=== PATIENT | male | born 1985 | race Caucasian/White ===

== ENCOUNTER 2017-07-26 22:14 | Emergency (ER) | payer OTHER, MEDICAID, SELFPAY | END 2017-07-27 12:26 | disposition home or self-care (01) | PROVIDERS: Emergency Provider Emergency Medicine; Family Provider Family Medicine; PCP Family Medicine; Visit Provider Emergency Medicine | DX: F10.10 Alcohol abuse, uncomplicated (principal) | CPT/HCPCS: 36415; 74177; 76700; 80053; 80305; 80320; 80329; 82550; 82553; 83690; 85025; 96361; 96374; 96375; 99058; 99285; C9113; G0480; J2060; Q9967 ==

== ENCOUNTER 2017-07-30 19:01 | Emergency (ER) | payer OTHER, MEDICAID, SELFPAY | END 2017-07-31 05:12 | disposition home or self-care (01) | PROVIDERS: Family Provider Family Medicine; PCP Family Medicine | DX: F10.929 Alcohol use, unspecified with intoxication, unspecified (principal) | CPT/HCPCS: 36415; 80048; 80305; 80320; 82075; 85025; 99058; 99284 ==

== ENCOUNTER 2017-08-24 22:45 | Emergency (ER) | payer OTHER, MEDICAID, SELFPAY ==
[2017-08-24 22:53] VITALS: BP 143/98; PULSE 116; RESP 16; TEMP 37; O2SAT 98; BMI 33.9
[2017-08-24 22:56] VITALS: BP 143/98; PULSE 117; RESP 28; O2SAT 95
[2017-08-24 23:48] LABS: Add Manual Diff / Slide Review NO; Basophils Percent Auto 1.2 % (0-2); Eosinophils Percent Auto 0.7 % (2-4); Hematocrit 49.4 % (41-53); Lymphocytes Percent Auto 30.1 % (25-40); Mean Corpuscular HGB Conc 34.3 % (30-36); Mean Corpuscular Hemoglobin 32.2 PG (26-34); Mean Corpuscular Volume 93.8 fL (80-100); Monocytes Percent Auto 8.6 % (3-14); Neutrophils Absolute Auto 3700 /uL (3000-5900); Neutrophils Percent Auto 59.4 % (50-75); Platelet Count 129 X10^3/uL (150-400); Red Blood Cell Count 5.27 X10^6/uL (4.5-5.9); Red Cell Distribution Width 17.6 % (11.6-14.8); White Blood Cell Count 6.2 X10^3/uL (4.5-11.0)
[2017-08-25] VITALS (9 sets, daily range): BP systolic 106–140; BP diastolic 58–86; PULSE 72–104; RESP 12–23; O2SAT 94–98
[2017-08-25] MEDS: SODIUM CHLORIDE 0.9% 1,000 ML 1000 ML IV (00:14)
[2017-08-25 00:29] LABS: BUN Creatinine Ratio 11.4 (6-22); Calcium 8.6 mg/dL (8.4-10.2); Estimated Glomerular Filt Rate > 60.0 mL/min (>60); Glucose 105 mg/dL (70-100); HEMOLYSIS < 15 (0-50); Potassium 3.7 mmol/L (3.4-5.1); Sodium 143 mmol/L (137-145)
--- NOTE | 2017-08-25 00:32 | PC.NURSE ---
Upon arrival, patient attempted to light a cigarette while laying on the gurney. Was advised this was against hospital policy and cigarette was taken away. Half an hour later, patient asked to walk to the bathroom to have a bowel movement. He ambulated with stand by assist and sat down on the toilet. He was found to be smoking cigarettes in the bathroom. He was again advised by the charge nurse that smoking is prohibited in the hospital. His cigarettes were taken. After this, he was found to be smoking a cigarette butt in his room. Several lighters were removed from his pockets along with his cigarettes and placed in a locked cabinet, labeled.
[2017-08-25 00:40] LABS: Ethanol (ETOH) 457 mg/dL
--- NOTE | 2017-08-25 01:04 | PC.NURSE ---
Pt has clear speech. Responds to stimulation. Obeys simple commands. Ambulates with slightly unsteady gait.
--- NOTE | 2017-08-25 06:58 | ED_ITS ---
HPI - Alcohol General Chief Complaint: Toxicology Problem Stated Complaint: ETOH Intoxication Time Seen by Provider: 08/24/17 22:47 History of Present Illness HPI narrative: HPI 31 y/o male with a history of EtOH and cough syrup abuse presents by EMS from a motel. Patient states that he is concerned that is in withdraw. Patient reports that he was drinking today. Patient denies further drug use. Patient denies trauma or illness. M/S/F/SocHx notable for: [please see HPI]; remainder reviewed with patient and in chart. ROS: Negative constitutional, eye, cardiovascular, pulmonary, GI, , MSK, skin , neurologic, psychiatric, endocrine unless noted in the HPI. Exam Gen: [Pleasant, non-toxic appearing, resting comfortably.] Mild slurring of speech. HEENT: [NC, AT, PEERL, EOMI.] Resp: [Clear to auscultation bilaterally, normal work of breathing, no accessory muscle usage.] Card: [Regular rate and rhythm with no murmurs, rubs, or gallops, extremities warm and well perfused.] GI: [Non-tender to palpation throughout all quadrants, no focal tenderness at McBurney's point, negative Reid's sign, non-distended, no rebound or guarding. ] : [No suprapubic tenderness to palpation.] MSK: [No visible deformities, strength and tone without visually appreciable deficit.] Skin: [Normal color with no visible lesions.] Neuro: [AO x 3, no facial asymmetry, vision and hearing WNL.] Psych: [Mood and affect appropriate.] Labs / Imaging: WBC 6.2, Hb 17.0, sodium 143, potassium 3.7, EtOH 457 MDM Previous chart, nursing note, labs, imaging, and vitals reviewed. A: 31 y/o male with a history of EtOH and cough syrup abuse presents by EMS from a motel. Patient states that he is concerned that is in withdraw. DDx: EtOH withdraw, EtOH intoxication, polysubstance intoxication, dehydration, occult trauma, PE, infection. Evaluation: history, exam, repeat evaluation are without evidence of acute infectious process. Clinically observed toxidrome is consistent with with the patient's elevated alcohol level, no clear evidence of clinically significant polypharmacy. Patient given IV hydration with correction tachycardia. Given the absence of further identifiable risk factors, and alternate diagnosis ( dehydration), and absence of shortness of breath no further evaluation with respect to PE is presently indicated. No evidence of trauma on history or exam. With rest and metabolization patient inhibitory with a narrow based nonantalgic gait. Patient with clearing of sensorium. Patient care transfer to the daytime provider pending sobriety and repeat evaluation. Impression: EtOH intoxication, dehydration (please reference below for remainder of encounter information) Related Data Home Medications Medication Instructions Recorded Confirmed esomeprazole magnesium [Nexium] 40 mg PO QDAY #0 04/27/17 paliperidone [Invega] 1.5 mg PO QDAY #0 04/27/17 Previous Rx's Medication Instructions Recorded lorazepam [Ativan] 1 mg PO SEE INSTRUCTIONS #18 tab 05/27/17 lorazepam [Ativan] 1 mg PO SEE INSTRUCTIONS #19 tab 07/16/17 ondansetron [Zofran ODT] 4 mg SUBLINGUAL Q6HP PRN #20 odt 07/16/17 lorazepam [Ativan] 1 mg PO SEE INSTRUCTIONS #19 tab 07/27/17 chlordiazepoxide HCl 25 mg PO SEE INSTRUCTIONS #9 cap 07/31/17 Allergies Allergy/AdvReac Type Severity Reaction Status Date / Time amoxicillin [AMOXICILLIN] Allergy Unknown Unverified 07/19/17 11:55 Exam Initial Vital Signs Initial Vital Signs: Vital Signs Temperature 98.6 F 08/24/17 22:53 Pulse Rate 116 H 08/24/17 22:53 Respiratory Rate 16 08/24/17 22:53 Blood Pressure 143/98 H 08/24/17 22:53 Pulse Oximetry 98 08/24/17 22:53 Course Orders Ordered: ED Orders 08/24/17 23:02 EKG-12 Lead Stat 08/24/17 23:42 Basic Metabolic Panel Stat Complete Blood Count AUTO DIFF Stat Ethanol (ETOH) Stat Discontinued Medications Sodium Chloride (Normal Saline 0.9%) 500 mls @ 1,000 mls/hr IV BOLUS ONE Stop: 08/25/17 00:02 Last Admin: 08/25/17 00:12 Dose: Sodium Chloride (Normal Saline 0.9%) 1,000 mls @ 1,000 mls/hr IV BOLUS ONE Stop: 08/25/17 01:11 Last Infusion: 08/25/17 01:40 Dose: 1,000 mls/hr Admin: 08/25/17 00:14 Dose: 1,000 mls/hr Vital Signs - 8 hr 08/25/17 01:01 08/25/17 03:37 08/25/17 04:29 Pulse Rate 73 94 H 72 Respiratory Rate 22 20 16 Blood Pressure 140/80 H Blood Pressure [Left Arm] 114/81 H 122/86 H Pulse Oximetry 96 97 98 08/25/17 05:54 Pulse Rate 91 H Respiratory Rate 23 Blood Pressure Blood Pressure [Left Arm] 107/58 L Pulse Oximetry 95 MDM - Alcohol Lab Data Result diagrams: 08/24/17 23:42 08/24/17 23:42 Labs: Lab Results 08/24/17 08/24/17 Range/Units 23:42 23:42 WBC 6.2 (4.5-11.0) X10^3/uL RBC 5.27 (4.5-5.9) X10^6/uL Hgb 17.0 (13.5-17.5) g/dL Hct 49.4 (41-53) % MCV 93.8 (80-100) fL MCH 32.2 (26-34) PG MCHC 34.3 (30-36) % RDW 17.6 H (11.6-14.8) % Plt Count 129 L (150-400) X10^3/uL Neut % (Auto) 59.4 (50-75) % Lymph % (Auto) 30.1 (25-40) % [place] % (Auto) 8.6 (3-14) % Eos % (Auto) 0.7 L (2-4) % Baso % (Auto) 1.2 (0-2) % Neut # (Auto) 3700 (2905-5574) /uL Sodium 143 (137-145) mmol/L Potassium 3.7 (3.4-5.1) mmol/L Chloride 102.0 (98-107) mmol/L Carbon Dioxide 23.0 (22-32) mmol/L BUN 8.0 L (9-20) mg/dL Creatinine 0.70 (0.66-1.25) mg/dL Estimated GFR > 60.0 (>60) mL/min BUN/Creatinine Ratio 11.4 (6-22) Glucose 105 H (70-100) mg/dL Calcium 8.6 (8.4-10.2) mg/dL Ethyl Alcohol 457 H* mg/dL Discharge Plan Departure Interventions: ED Discharge Assessment Last Done: 08/25/17 04:29 Prescriptions: No Action esomeprazole magnesium [Nexium] 40 MG capsule,delayed release(DR/EC) 40 mg PO QDAY Qty: 0 RF: 0 paliperidone [Invega] 1.5 MG tablet extended release 24hr 1.5 mg PO QDAY Qty: 0 RF: 0 lorazepam [Ativan] 1 MG tablet 1 mg PO SEE INSTRUCTIONS Qty: 18 RF: 0 lorazepam [Ativan] 1 MG tablet 1 mg PO SEE INSTRUCTIONS Qty: 19 RF: 0 ondansetron [Zofran ODT] 4 MG tablet,disintegrating 4 mg Sublingual Q6HP PRNQty: 20 RF: 0 lorazepam [Ativan] 1 MG tablet 1 mg PO SEE INSTRUCTIONS Qty: 19 RF: 0 chlordiazepoxide HCl 25 MG capsule 25 mg PO SEE INSTRUCTIONS Qty: 9 RF: 0
--- NOTE | 2017-08-25 07:23 | PC.NURSE ---
Pt repositioned. Responds to voice and stimulation but falls back to sleep promptly.
[2017-08-25 08:42] LABS: Ethanol (ETOH) 263 mg/dL
[2017-08-25] MEDS: ONDANSETRON 4 MG/2 ML INJ IV (09:14)
--- NOTE | 2017-08-25 09:27 | PC.NURSE ---
Pt alert, requesting detox. Asking for water and taking po fluids. Given Zofran for nausea. Detox called, Pt talking to detox.
--- NOTE | 2017-08-25 12:02 | PC.NURSE ---
Spoke w/ Didi from detox. Accepted, male bed available. Ok'd cab to stop at hotel room to pick up operator pt's usual medications. / Erin RN aware. Cab being scheduled for [id number]
== END 2017-08-25 12:58 | disposition home or self-care (01) ==
PROVIDERS: Emergency Medicine; Emergency Provider Emergency Medicine; Family Provider Family Medicine; PCP Family Medicine
DX: F10.929 Alcohol use, unspecified with intoxication, unspecified (principal); E86.0 Dehydration
CPT/HCPCS: 36415; 80048; 80320; 82075; 85025; 93005; 96360; 99284; 99285; J2405

== ENCOUNTER 2017-09-06 05:14 | Emergency (ER) | payer OTHER, MEDICAID, SELFPAY ==
[2017-09-06] VITALS (8 sets, daily range): BP systolic 116–139; BP diastolic 52–96; PULSE 72–122; RESP 16–28; TEMP 36.9; O2SAT 93–100
--- NOTE | 2017-09-06 05:28 | ED.ANXIETY ---
HPI - Anxiety General Chief Complaint: Anxiety Stated Complaint: panic attack Time Seen by Provider: 09/06/17 05:19 Source: patient and EMS Mode of arrival: EMS Limitations: no limitations History of Present Illness HPI narrative: 31-year-old male seen in this emergency department in the past for alcohol intoxication here for evaluation of a ???panic attack???. Patient called the EMS because he was having what he described was a panic attack. Patient does admit to drinking alcohol this evening. States his last drink was just prior to EMS arrival to his house. He also admits to smoking methamphetamine approximately 3 o'clock this morning. Denies any other toxic ingestions. Patient states that he is anxious about having to spend a year in nursing home starting on the of next month. Last time I saw him here in the emergency department he went voluntarily to a detox facility. He states that he went there for 3 days and then was discharged. Has not followed up since then. Related Data Home Medications Medication Instructions Recorded Confirmed paliperidone [Invega] 1.5 mg PO QDAY #0 04/27/17 08/25/17 Previous Rx's Medication Instructions Recorded lorazepam [Ativan] 2 mg PO DAILY #9 tab 08/25/17 ondansetron [Zofran ODT] 4 mg PO Q6H PRN #20 tab 08/25/17 Allergies Allergy/AdvReac Type Severity Reaction Status Date / Time amoxicillin [AMOXICILLIN] Allergy Unknown Verified 08/25/17 09:14 Review of Systems Constitutional Denies chills, Denies fever(s), Denies lethargy and Denies weakness ENT Ears, Nose, Mouth, and Throat: Denies dizziness Cardiovascular Denies chest pain, Denies irregular heart rhythm, Denies lightheadedness, Denies palpitations, Denies dyspnea, Denies dyspnea on exertion and Denies orthopnea Respiratory Denies cough, Denies dyspnea, Denies dyspnea on exertion and Denies wheezing Gastrointestinal Gastrointestinal: Denies abdominal pain, Denies change in bowel habits, Denies diarrhea, Denies nausea and Denies vomiting Genitourinary Denies dysuria Musculoskeletal Denies numbness and Reports tingling Comments: Pain in his legs Integumentary/Breasts Denies pruritus, Denies erythema, Denies rash and Denies wounds Neurologic Denies confusion, Denies dizziness, Denies focal weakness, Denies numbness, Reports tingling, Reports paresthesias, Reports tremor(s) and Denies weakness Psychiatric Reports anxiety, Denies confusion, Reports panic attacks, Denies homicidal ideation and Denies suicidal ideation Endocrine Denies palpitations Hematologic/Lymphatic Denies easy bruising Allergic/Immunologic Denies wheezing [facility] Social History Smoking Status: Current every day smoker Exam Initial Vital Signs Initial Vital Signs: Vital Signs Temperature 98.5 F 09/06/17 05:20 Pulse Rate 110 H 09/06/17 05:20 Respiratory Rate 28 H 09/06/17 05:20 Blood Pressure 133/84 H 09/06/17 05:20 Pulse Oximetry 95 09/06/17 05:20 Const General: cooperative, No acute distress, anxious and No combative Nutritional Appearance: average body habitus Orientation: alert and awake HENMT Head: normal to inspection and normocephalic Resp Effort & Inspection: normal respiratory effort, able to speak in complete sentences, no respiratory distress and no use of accessory muscles Auscultation: clear to auscultation bilaterally, no rales, no rhonchi and no wheezes Cardio Rate: tachycardic Rhythm: regular rhythm Heart Sounds: no click, no gallops, no murmurs and no rubs Pulses: normal peripheral pulses GI Inspection: normal to inspection Palpation: soft, No firm, No guarding and No rigid Skin General: no rashes or lesions noted, No jaundice and No petechiae Neuro General: alert and awake Psych Appearance: grossly normal Speech and Movement: slowed movement and slurred speech Mood: dysthymic mood Affect: sad and blunted Attitude: cooperative Course Orders Ordered: ED Orders 09/06/17 05:35 Acetaminophen Stat Complete Blood Count AUTO DIFF Stat Comprehensive Metabolic Panel Stat Ethanol (ETOH) Stat Hepatic (Liver) Panel Stat Lipase Stat Salicylate Stat 09/06/17 06:15 Rapid Drug Screen, Urine Stat Multivitamins (Tab-A-Abigail) 1 tab PO DAILY CHRISSY Discontinued Medications Lorazepam (Ativan) 1 mg PO NOW ONE Stop: 09/06/17 05:22 Last Admin: 09/06/17 05:34 Dose: 1 mg Multivitamins (Tab-A-Abigail) 1 tab PO DAILY CHRISSY Multivitamins (Tab-A-Abigail) 1 tab PO DAILY CHRISSY Last Admin: 09/06/17 05:48 Dose: Nicotine (Nicoderm) 21 mg TOP NOW ONE Stop: 09/06/17 05:22 Last Admin: 09/06/17 05:33 Dose: 21 mg Thiamine HCl (Vitamin B-1) 100 mg PO NOW ONE Stop: 09/06/17 05:27 Last Admin: 09/06/17 05:33 Dose: 100 mg Vital Signs - 8 hr 09/06/17 05:20 09/06/17 06:07 09/06/17 06:26 Temperature 98.5 F Pulse Rate 110 H 122 H Respiratory Rate 28 H 26 H Blood Pressure 133/84 H Blood Pressure [Left Arm] 133/96 H Pulse Oximetry 95 94 99 09/06/17 06:48 Temperature Pulse Rate 114 H Respiratory Rate Blood Pressure Blood Pressure [Left Arm] Pulse Oximetry 93 MDM - Anxiety Lab Data Attestation: I reviewed the patient's lab results. Result diagrams: 09/06/17 05:35 09/06/17 05:35 Lab Results 09/06/17 09/06/17 09/06/17 Range/Units 05:35 05:35 06:15 WBC 5.0 (4.5-11.0) X10^3/uL RBC 4.70 (4.5-5.9) X10^6/uL Hgb 15.2 (13.5-17.5) g/dL Hct 43.6 (41-53) % MCV 92.8 (80-100) fL MCH 32.4 (26-34) PG MCHC 34.9 (30-36) % RDW 16.4 H (11.6-14.8) % Plt Count 144 L (150-400) X10^3/uL Neut % (Auto) 73.8 (50-75) % Lymph % (Auto) 14.4 L (25-40) % [place] % (Auto) 9.1 (3-14) % Eos % (Auto) 0.1 L (2-4) % Baso % (Auto) 2.6 H (0-2) % Neut # (Auto) 3700 (5838-6632) /uL Sodium 140 (137-145) mmol/L Potassium 3.9 (3.4-5.1) mmol/L Chloride 97 L (98-107) mmol/L Carbon Dioxide 18 L (22-32) mmol/L BUN 9 (9-20) mg/dL Creatinine 0.80 (0.66-1.25) mg/dL Estimated GFR > 60.0 (>60) mL/min BUN/Creatinine Ratio 11.3 (6-22) Glucose 131 H (70-100) mg/dL Calcium 8.6 (8.4-10.2) mg/dL Total Bilirubin 0.8 (0.2-1.3) mg/dL Conjugated Bilirubin 0.0 (0.0-0.3) md/dL Unconjugated Bilirubin 0.4 (0.0-1.1) mg/dL AST 110 H (17-59) IU/L ALT 169 H (21-72) IU/L Alkaline Phosphatase 116 (38-126) U/L Total Protein 7.5 (6.3-8.2) g/dL Albumin 4.5 (3.5-5.0) g/dL Globulin 3.0 (1.7-4.1) g/dL Albumin/Globulin Ratio 1.5 (1.0-2.8) Lipase 148 (23-300) U/L Salicylates < 1.0 (<20) mg/dL Urine Opiates Screen Negative (Negative) Ur Oxycodone Screen Negative (Negative) Urine Methadone Screen Negative (Negative) Acetaminophen < 10 L (10-30) ug/dL Ur Barbiturates Screen Negative (Negative) U Tricyclic Antidepress Negative (Negative) Ur Phencyclidine Scrn Negative (Negative) Ur Amphetamines Screen Positive H (Negative) U Methamphetamines Scrn Positive H (Negative) Ur MDMA Scrn (Ecstasy) Negative (Negative) U Benzodiazepines Scrn Positive H (Negative) Urine Cocaine Screen Negative (Negative) U Marijuana (THC) Screen Negative (Negative) Ethyl Alcohol 447 H* mg/dL MDM Narrative Medical decision making narrative: Elevated ETOH level. also positive for meth in UDS and pt admits to smoking meth last night. Pt stable. increased HR but I suspect this is from the ETOH and meth. I do not think he is acute withdraw. Turned over to day provider at shift turnover for re-evaluation. Discharge Plan Departure Prescriptions: No Action paliperidone [Invega] 1.5 MG tablet extended release 24hr 1.5 mg PO QDAY Qty: 0 RF: 0 ondansetron [Zofran ODT] 4 mg tablet,disintegrating 4 mg PO Q6H PRN (Reason: nausea) Qty: 20 RF: 0 lorazepam [Ativan] 2 mg tablet 2 mg PO DAILY Qty: 9 RF: 0
[2017-09-06] MEDS: THIAMINE 100 MG TABLET PO (05:33)
[2017-09-06] MEDS: NICOTINE 21 MG PATCH TOP (05:33)
[2017-09-06] MEDS: LORazepam 1 MG TABLET PO (05:34)
[2017-09-06 05:48] LABS: Add Manual Diff / Slide Review NO; Basophils Percent Auto 2.6 % (0-2); Eosinophils Percent Auto 0.1 % (2-4); Hematocrit 43.6 % (41-53); Hemoglobin 15.2 g/dL (13.5-17.5); Lymphocytes Percent Auto 14.4 % (25-40); Mean Corpuscular HGB Conc 34.9 % (30-36); Mean Corpuscular Hemoglobin 32.4 PG (26-34); Mean Corpuscular Volume 92.8 fL (80-100); Monocytes Percent Auto 9.1 % (3-14); Neutrophils Absolute Auto 3700 /uL (3000-5900); Neutrophils Percent Auto 73.8 % (50-75); Platelet Count 144 X10^3/uL (150-400); Red Cell Distribution Width 16.4 % (11.6-14.8)
[2017-09-06 06:03] LABS: BUN Creatinine Ratio 11.3 (6-22); Bilirubin Total 0.8 mg/dL (0.2-1.3); Bilirubin Unconjugated 0.4 mg/dL (0.0-1.1); Blood Urea Nitrogen 9 mg/dL (9-20); Calcium 8.6 mg/dL (8.4-10.2); Carbon Dioxide 18 mmol/L (22-32); Chloride 97 mmol/L (98-107); Estimated Glomerular Filt Rate > 60.0 mL/min (>60); Glucose 131 mg/dL (70-100); Potassium 3.9 mmol/L (3.4-5.1); Sodium 140 mmol/L (137-145)
[2017-09-06 06:04] LABS: Alanine Aminotransferase 169 IU/L (21-72); Albumin 4.5 g/dL (3.5-5.0); Albumin Globulin Ratio 1.5 (1.0-2.8); Alkaline Phosphatase 116 U/L (38-126); Aspartate Aminotransferase 110 IU/L (17-59); HEMOLYSIS < 15 (0-50); Lipase 148 U/L (23-300); Total Protein 7.5 g/dL (6.3-8.2)
[2017-09-06 06:33] LABS: Urine Amphetamines Positive (Negative); Urine Barbiturates Negative (Negative); Urine Benzodiazepines Positive (Negative); Urine Cocaine Negative (Negative); Urine MDMA Negative (Negative); Urine Methamphetamines Positive (Negative); Urine Morphine/Opi cutoff 2000 Negative (Negative); Urine Phencyclidine Negative (Negative); Urine Tetrahydrocannabinol Negative (Negative)
[2017-09-06 06:34] LABS: Urine Methadone Negative (Negative); Urine Oxycodone Negative (Negative); Urine Tricyclic Antidepressant Negative (Negative)
[2017-09-06 06:36] LABS: Acetaminophen < 10 ug/dL (10-30); Salicylate < 1.0 mg/dL (<20)
[2017-09-06 06:45] LABS: Ethanol (ETOH) 447 mg/dL
--- NOTE | 2017-09-06 07:05 | PC.NURSE ---
Assumed care. PT is sleeping. Remainder of pts drink in water bottle has been poured out by staff. Multivitamin and breakfast ordered. Plan for DC unclear at this time.
--- NOTE | 2017-09-06 07:36 | PC.NURSE ---
PT awake and amb with stumbling in room. Coffee and po fluids offered.
[2017-09-06] MEDS: MULTIVITAMIN 1 TABLET 1 TAB PO (08:22)
--- NOTE | 2017-09-06 09:14 | PC.NURSE ---
Denies that he smoked in BR but strong smell of cigerette smoke in br. Cigerettes and liter taken from PT
--- NOTE | 2017-09-06 10:32 | PC.NURSE ---
Cab will be provided for DC.
== END 2017-09-06 10:44 | disposition home or self-care (01) ==
PROVIDERS: Emergency Medicine; Emergency Provider Emergency Medicine; Family Provider Family Medicine; PCP Family Medicine
DX: F10.929 Alcohol use, unspecified with intoxication, unspecified (principal)
CPT/HCPCS: 36415; 80053; 80076; 80305; 80320; 80329; 82075; 83690; 85025; 99283; G0480

== ENCOUNTER 2017-09-08 11:42 | Emergency (ER) | payer OTHER, MEDICAID, SELFPAY ==
[2017-09-08 11:46] VITALS: BP 141/96; PULSE 114; RESP 18; TEMP 36.8; O2SAT 93
[2017-09-08 11:47] VITALS: BP 141/96; PULSE 122; RESP 14; TEMP 36.9; O2SAT 92
[2017-09-08 12:49] LABS: Add Manual Diff / Slide Review NO; Basophils Percent Auto 1.9 % (0-2); Eosinophils Percent Auto 0.5 % (2-4); Hematocrit 43.8 % (41-53); Hemoglobin 15.3 g/dL (13.5-17.5); Lymphocytes Percent Auto 24.4 % (25-40); Mean Corpuscular Hemoglobin 32.6 PG (26-34); Mean Corpuscular Volume 93.1 fL (80-100); Monocytes Percent Auto 6.7 % (3-14); Neutrophils Absolute Auto 3600 /uL (3000-5900); Neutrophils Percent Auto 66.5 % (50-75); Platelet Count 106 X10^3/uL (150-400); Red Cell Distribution Width 16.4 % (11.6-14.8); White Blood Cell Count 5.4 X10^3/uL (4.5-11.0)
[2017-09-08 12:57] LABS: Alanine Aminotransferase 152 IU/L (21-72); Albumin 4.5 g/dL (3.5-5.0); Albumin Globulin Ratio 1.5 (1.0-2.8); Alkaline Phosphatase 132 U/L (38-126); Aspartate Aminotransferase 160 IU/L (17-59); Bilirubin Total 0.7 mg/dL (0.2-1.3); Blood Urea Nitrogen 4 mg/dL (9-20); Carbon Dioxide 25 mmol/L (22-32); Chloride 97 mmol/L (98-107); Estimated Glomerular Filt Rate > 60.0 mL/min (>60); Glucose 118 mg/dL (70-100); HEMOLYSIS < 15 (0-50); Lipase 311 U/L (23-300); Potassium 3.8 mmol/L (3.4-5.1); Sodium 142 mmol/L (137-145); Total Protein 7.5 g/dL (6.3-8.2)
[2017-09-08 13:12] LABS: Ethanol (ETOH) 403 mg/dL
--- NOTE | 2017-09-08 14:27 | ED.ALCOHOL ---
HPI - Alcohol General Chief Complaint: Toxicology Problem Stated Complaint: intoxication Time Seen by Provider: 09/08/17 11:45 History of Present Illness HPI narrative: HPI 31-year-old male presents for evaluation of poorly articulated panic attack, patient reports that his anxiety occurred in the setting of alcohol intoxication and recent methamphetamine use. Denies trauma, fevers, chills, notes one week of poorly characterized vague epigastric and right upper quadrant discomfort. Patient reports that he is domiciled at a hotel. M/S/F/SocHx notable for: EtOH abuse, methamphetamine abuse, cough syrup abuse, schizoaffective disorder, alcohol induced pancreatitis; remainder reviewed with patient and in chart. ROS: Negative constitutional, eye, cardiovascular, pulmonary, GI, , MSK, skin, neurologic, psychiatric, endocrine unless noted in the HPI. Exam Gen: pleasant, nontoxic-appearing, sleeping comfortably, arouses appropriate to voice and is alert and attractive with a mildly decreased level of consciousness and mild slurring of speech. HEENT: NC, AT, PEERL, EOMI. Resp: Clear to auscultation bilaterally, normal work of breathing, no accessory muscle usage. Card: Regular rate and rhythm with no murmurs, rubs, or gallops, extremities warm and well perfused. GI: mild right upper quadrant tenderness to palpation, mild epigastric tenderness to palpation, negative Reid sign, remainder of abdomen nontender to palpation without rebound or guarding. : No suprapubic tenderness to palpation. MSK: No visible deformities, strength and tone without visually appreciable deficit. Skin: Normal color with no visible lesions. Neuro: alert and oriented x 3, no facial asymmetry, vision and hearing within normal limits, mild slurring of speech. Psych: mildly depressed mood and affect. Labs / Imaging: WBC 5.4, human 15.3, sodium 142, potassium 3.8, total bilirubin 0.7, AST 160, ALT 152, ALP 132, lipase 311, EtOH > 300 MDM Previous chart, nursing note, labs, imaging, and vitals reviewed. A: 31-year-old male presents for evaluation of poorly articulated panic attack, patient reports that his anxiety occurred in the setting of alcohol intoxication and recent methamphetamine use. DDx & Evaluation: * patient resting comfortably without evidence of anxiety or acute medical process other than a toxidrome generally consistent with focal consumption. Given the patient's elevated blood alcohol level and history of heavy drinking this is believed to be the cause of his mild slurring of speech. The patient has a nonfocal neuro exam, and after observation and clearing of intoxication as noted below. Initial and repeat evaluation is without evidence of occult trauma. No clear evidence of pancreatitis or biliary disease by labs and exam. * 14:16 - Patient AOx3, ambulatory with a steady, narrow based gait. Discharged with PCP follow up and AA follow up recommended. Impression: alcohol intoxication (please reference below for remainder of encounter information) Related Data Home Medications Medication Instructions Recorded Confirmed buspirone 5 mg PO TID 09/06/17 09/08/17 paliperidone 1 tab PO DAILY 09/06/17 09/08/17 Previous Rx's Medication Instructions Recorded lorazepam [Ativan] 2 mg PO DAILY #9 tab 08/25/17 ondansetron [Zofran ODT] 4 mg PO Q6H PRN #20 tab 08/25/17 Allergies Allergy/AdvReac Type Severity Reaction Status Date / Time amoxicillin [AMOXICILLIN] Allergy Unknown Verified 08/25/17 09:14 [facility] Social History Smoking Status: Current every day smoker Exam Initial Vital Signs Initial Vital Signs: Vital Signs Temperature 98.2 F 09/08/17 11:46 Pulse Rate 114 H 09/08/17 11:46 Respiratory Rate 18 09/08/17 11:46 Blood Pressure 141/96 H 09/08/17 11:46 Pulse Oximetry 93 09/08/17 11:46 Course Orders Ordered: ED Orders 09/08/17 12:32 Complete Blood Count AUTO DIFF Stat Comprehensive Metabolic Panel Stat Ethanol (ETOH) Stat Lipase Stat Vital Signs - 8 hr 09/08/17 11:46 09/08/17 11:47 Temperature 98.2 F 98.5 F Pulse Rate 114 H 122 H Respiratory Rate 18 14 Blood Pressure 141/96 H Blood Pressure [Left Arm] 141/96 H Pulse Oximetry 93 92 MDM - Alcohol Lab Data Result diagrams: 09/08/17 12:32 09/08/17 12:32 Labs: Lab Results 09/08/17 09/08/17 Range/Units 12:32 12:32 WBC 5.4 (4.5-11.0) X10^3/uL RBC 4.70 (4.5-5.9) X10^6/uL Hgb 15.3 (13.5-17.5) g/dL Hct 43.8 (41-53) % MCV 93.1 (80-100) fL MCH 32.6 (26-34) PG MCHC 35.0 (30-36) % RDW 16.4 H (11.6-14.8) % Plt Count 106 L (150-400) X10^3/uL Neut % (Auto) 66.5 (50-75) % Lymph % (Auto) 24.4 L (25-40) % [place] % (Auto) 6.7 (3-14) % Eos % (Auto) 0.5 L (2-4) % Baso % (Auto) 1.9 (0-2) % Neut # (Auto) 3600 (7024-3796) /uL Sodium 142 (137-145) mmol/L Potassium 3.8 (3.4-5.1) mmol/L Chloride 97 L (98-107) mmol/L Carbon Dioxide 25 (22-32) mmol/L BUN 4 L (9-20) mg/dL Creatinine 0.80 (0.66-1.25) mg/dL Estimated GFR > 60.0 (>60) mL/min BUN/Creatinine Ratio 5.0 L (6-22) Glucose 118 H (70-100) mg/dL Calcium 9.0 (8.4-10.2) mg/dL Total Bilirubin 0.7 (0.2-1.3) mg/dL AST 160 H (17-59) IU/L ALT 152 H (21-72) IU/L Alkaline Phosphatase 132 H (38-126) U/L Total Protein 7.5 (6.3-8.2) g/dL Albumin 4.5 (3.5-5.0) g/dL Globulin 3.0 (1.7-4.1) g/dL Albumin/Globulin Ratio 1.5 (1.0-2.8) Lipase 311 H D (23-300) U/L Ethyl Alcohol 403 H* mg/dL Discharge Plan Departure Prescriptions: No Action ondansetron [Zofran ODT] 4 mg tablet,disintegrating 4 mg PO Q6H PRN (Reason: nausea) Qty: 20 RF: 0 lorazepam [Ativan] 2 mg tablet 2 mg PO DAILY Qty: 9 RF: 0 buspirone 5 mg tablet 5 mg PO TID RF: 0 paliperidone 9 mg tablet extended release 24hr 1 tab PO DAILY RF: 0
[2017-09-08 14:38] VITALS: BP 126/87; PULSE 70; RESP 16; O2SAT 97
--- NOTE | 2017-09-08 15:03 | PC.NURSE ---
Able to walk straight
--- NOTE | 2017-09-08 15:43 | PC.NURSE ---
Went to discharge pt, patient requested voucher for Cab. He has been here multiple times. Stated wouldn't provide voucher today and he refused to leave. had patient ambulate in ER. Pt steady on feet and ambulating straight. Once back in bed, was told he still wouldn't get a taxi voucher. Pt pretend to sleep and not wake up. Provider aware. Provider in room and was able to get patient to ambulate out of the ER.
== END 2017-09-08 15:30 | disposition home or self-care (01) ==
PROVIDERS: Emergency Provider Emergency Medicine; Family Provider Family Medicine; PCP Family Medicine
DX: F10.929 Alcohol use, unspecified with intoxication, unspecified (principal)
CPT/HCPCS: 36415; 80053; 80320; 83690; 85025; 99282; 99283

== ENCOUNTER 2017-09-10 18:13 | Emergency (ER) | payer OTHER, MEDICAID, SELFPAY ==
[2017-09-10 18:23] VITALS: BP 132/84; PULSE 119; RESP 20; TEMP 36; O2SAT 93; BMI 32.0
[2017-09-10 21:28] VITALS: BP 121/89; PULSE 116; RESP 12; TEMP 36.7; O2SAT 96
[2017-09-10 23:51] LABS: Add Manual Diff / Slide Review NO; Basophils Percent Auto 1.8 % (0-2); Hemoglobin 15.1 g/dL (13.5-17.5); Lymphocytes Percent Auto 35.4 % (25-40); Mean Corpuscular HGB Conc 35.1 % (30-36); Mean Corpuscular Hemoglobin 32.3 PG (26-34); Monocytes Percent Auto 6.1 % (3-14); Neutrophils Absolute Auto 2200 /uL (3000-5900); Neutrophils Percent Auto 55.7 % (50-75); Platelet Count 68 X10^3/uL (150-400); Red Blood Cell Count 4.67 X10^6/uL (4.5-5.9); Red Cell Distribution Width 16.4 % (11.6-14.8)
[2017-09-11 00:02] LABS: Acetaminophen < 10 ug/dL (10-30)
[2017-09-11 00:03] LABS: Salicylate < 1.0 mg/dL (<20)
[2017-09-11 00:08] LABS: Ethanol (ETOH) 354 mg/dL
[2017-09-11 00:17] LABS: Alanine Aminotransferase 135 IU/L (21-72); Albumin 4.1 g/dL (3.5-5.0); Albumin Globulin Ratio 1.5 (1.0-2.8); Alkaline Phosphatase 105 U/L (38-126); Aspartate Aminotransferase 135 IU/L (17-59); BUN Creatinine Ratio 4.3 (6-22); Bilirubin Total 0.8 mg/dL (0.2-1.3); Blood Urea Nitrogen 3 mg/dL (9-20); Calcium 8.7 mg/dL (8.4-10.2); Carbon Dioxide 22 mmol/L (22-32); Chloride 97 mmol/L (98-107); Estimated Glomerular Filt Rate > 60.0 mL/min (>60); Globulin 2.8 g/dL (1.7-4.1); Glucose 113 mg/dL (70-100); HEMOLYSIS < 15 (0-50); Potassium 3.3 mmol/L (3.4-5.1); Sodium 139 mmol/L (137-145); Total Protein 6.9 g/dL (6.3-8.2)
[2017-09-11 00:33] LABS: T4 Total Thyroxine 7.66 ug/dL (5.5-11.0)
[2017-09-11 00:47] LABS: Thyroid Stimulating Hormone 1.54 uIU/mL (0.47-4.68)
[2017-09-11 01:31] LABS: Bacteria Urine None Seen; WBC Urine None Seen (0-5/HPF)
[2017-09-11 01:32] LABS: Urine Amphetamines Positive (Negative); Urine Barbiturates Negative (Negative); Urine Benzodiazepines Negative (Negative); Urine Cocaine Negative (Negative); Urine MDMA Negative (Negative); Urine Methadone Negative (Negative); Urine Methamphetamines Positive (Negative); Urine Morphine/Opi cutoff 2000 Negative (Negative); Urine Oxycodone Negative (Negative); Urine Phencyclidine Negative (Negative); Urine Tetrahydrocannabinol Negative (Negative); Urine Tricyclic Antidepressant Negative (Negative)
[2017-09-11 01:36] LABS: Culture Indicated Urine Cult Not Indicated; RBC Urine 0-1/HPF (0-5/HPF)
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
[2017-09-11 02:09] VITALS: BP 121/81; PULSE 88; RESP 18; O2SAT 98
[2017-09-11 06:16] VITALS: BP 128/73; PULSE 111; RESP 15; O2SAT 98
[2017-09-11] MEDS: LORazepam 1 MG TABLET 2 MG PO (06:27)
[2017-09-11 08:11] VITALS: BP 139/92; PULSE 120; RESP 20; O2SAT 97
[2017-09-11 09:15] VITALS: BP 125/85; PULSE 118; RESP 18; O2SAT 97
[2017-09-11] MEDS: LORazepam 0.5 MG TABLET 2 MG PO (10:06)
--- NOTE | 2017-09-11 10:15 | PC.NURSE ---
Medicated w/ ativan 2 mg po for withdrawl.
[2017-09-11] MEDS: THIAMINE 100 MG TABLET PO (10:16)
--- NOTE | 2017-09-11 10:17 | PC.NURSE ---
Pt's Invega not available at . Pt not currently experiencing symptoms at this time. Pt states he can not take seroquel 'It drops my blood pressure when I stand up' and states zyprexa 'doesn't work'. MD aware. No new orders at this time.
[2017-09-11 10:47] VITALS: BP 132/83; PULSE 128; RESP 18; TEMP 37.3; O2SAT 99
== END 2017-09-11 11:14 | disposition short-term general hospital (02) ==
PROVIDERS: Emergency Medicine; Emergency Provider Emergency Medicine; Family Provider Family Medicine; PCP Family Medicine
DX: F10.129 Alcohol abuse with intoxication, unspecified (principal)
CPT/HCPCS: 36415; 80053; 80305; 80320; 80329; 81003; 81015; 82075; 84436; 84443; 85025; 99284; G0480

== ENCOUNTER 2017-10-18 00:02 | Emergency (ER) | payer OTHER, MEDICAID, SELFPAY ==
[2017-10-18 00:18] VITALS: BP 151/87; PULSE 98; RESP 17; TEMP 36.6; O2SAT 98
--- NOTE | 2017-10-18 00:29 | PC.NURSE ---
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 had a second pt. placed in gown - is currently masturbating despite requests to stop. Pt. belongings secured - backpack locked in psych cabinet and guitar across from cabinet under desk. Pt. currently masturbating in room - depsite requests to stop.
--- NOTE | 2017-10-18 01:43 | ED_ITS ---
HPI - Psych General Chief Complaint: Psychiatric Symptoms Stated Complaint: Abd Pain/ Detox Time Seen by Provider: 10/18/17 00:10 Source: patient and EMS Mode of arrival: ambulatory Limitations: no limitations History of Present Illness HPI Narrative: Patient presents to the emergency department for evaluation of alcohol abuse and pending detox. He is very well known to myself and others for her extensive alcohol abuse and has been to detox on multiple occasions. He drinks as much as he can per day and was even sent to [facility] a few months ago under week [facility]. He has been to would be multiple times in the past week wanting detox and has had thorough evaluations. He presents tonight stating he last had a few shots a few hours ago and is not showing signs of withdrawal at this point in time Onset (ago): minute(s) Duration: constant Relieving factors: none Exacerbating factors: none Context: recent alcohol abuse Associated psychiatric symptoms: none Treatments prior to arrival: none Related Data Home Medications Medication Instructions Recorded Confirmed buspirone 5 mg PO TID 09/06/17 09/11/17 paliperidone 1 tab PO DAILY 09/06/17 09/11/17 Previous Rx's Medication Instructions Recorded lorazepam [Ativan] 2 mg PO DAILY #9 tab 08/25/17 ondansetron [Zofran ODT] 4 mg PO Q6H PRN #20 tab 08/25/17 lorazepam [Ativan] See Label Instructions .ROUTE 10/18/17 .COMPLEX #19 tab Allergies Allergy/AdvReac Type Severity Reaction Status Date / Time amoxicillin [AMOXICILLIN] Allergy Unknown Verified 08/25/17 09:14 quetiapine [From Seroquel] AdvReac Severe Hypotension Verified 09/11/17 11:06 Review of Systems Review of Systems All systems reviewed & are unremarkable except as noted in HPI and below Constitutional Denies chills, Denies fever(s), Denies lethargy and Denies weakness Eyes Denies change in vision, Denies eye discharge, Denies irritation and Denies loss of vision ENT Ears, Nose, Mouth, and Throat: Denies change in voice, Denies neck pain and Denies sore throat Cardiovascular Denies chest pain, Denies irregular heart rhythm, Denies lightheadedness, Denies palpitations, Denies dyspnea, Denies dyspnea on exertion and Denies orthopnea Respiratory Denies cough, Denies dyspnea, Denies dyspnea on exertion and Denies wheezing Gastrointestinal Gastrointestinal: Reports abdominal pain, Denies change in bowel habits, Denies diarrhea, Denies nausea and Denies vomiting Genitourinary Denies hematuria, Denies flank pain, Denies urinary incontinence and Denies urinary urgency Musculoskeletal Denies neck pain Integumentary/Breasts Denies pruritus, Denies erythema, Denies rash and Denies wounds Neurologic Denies confusion, Denies loss of vision and Denies weakness Psychiatric Denies anxiety, Denies confusion, Denies depression, Denies homicidal ideation and Denies suicidal ideation Endocrine Denies palpitations Hematologic/Lymphatic Denies easy bruising Allergic/Immunologic Denies wheezing [facility] Social History Smoking Status: Current every day smoker Exam Initial Vital Signs Initial Vital Signs: Vital Signs Temperature 97.8 F 10/18/17 00:18 Pulse Rate 98 H 10/18/17 00:18 Respiratory Rate 17 10/18/17 00:18 Blood Pressure 151/87 H 10/18/17 00:18 Pulse Oximetry 98 10/18/17 00:18 Const General: cooperative, well developed, disheveled and intoxicated appearing Nutritional Appearance: well nourished Orientation: alert, awake, oriented x3 and not confused [facility] Head: normocephalic and atraumatic Ears: external ears normal and TM's normal bilaterally Nose: external nose normal and No nasal discharge Face and sinus: sinuses nontender, face symmetric, no sinus tenderness and No dry mucous membranes Mouth: oral mucosae normal and moist mucous membranes Teeth and gingiva: dentition normal Throat: tonsils normal and uvula midline Chest Chest: normal inspection of the chest Cardio Rate: regular rate Rhythm: regular rhythm Heart Sounds: no click, no gallops, no murmurs and no rubs Pulses: normal peripheral pulses GI Inspection: non-distended Palpation: soft, no hepatosplenomegaly, No guarding, No pulsatile mass and tender Auscultation: normal bowel sounds Skin General: no rashes or lesions noted, No jaundice and No petechiae Neuro Other: Speaking clearly and ambulating with a steady gait. Psych Appearance: grossly normal Speech and Movement: speech and movement normal Affect: normal affect Attitude: cooperative Course Orders Ordered: Discontinued Medications Lorazepam (Ativan) 1 mg PO NOW ONE Stop: 10/18/17 01:03 Reevaluation(s) Reevaluation #1: Patient was caught smoking in the bathroom and Casey MONZON was involved to address the situation. Patient remained calm, was ready for DC and requesting dtox. [facility] contacted and they have a bed. Patient given Ativan 1mg PO and a taper to take with him. [facility] will take him to Detox. Vital Signs - 8 hr 10/18/17 00:18 Temperature 97.8 F Pulse Rate 98 H Respiratory Rate 17 Blood Pressure 151/87 H Pulse Oximetry 98 Discharge Plan Departure Patient Disposition: Home, Self-Care Clinical Impression: Alcohol intoxication, Encounter for medical clearance for patient hold Instructions: Alcohol Use Disorder Activity Restrictions/Additional Instructions: *You have been diagnosed with [ alcohol abuse and use disorder you've had a medical screening exam and are MEDICALLY CLEARED FOR TREATMENT] *What to do: *Take medications as directed *Follow up with your primary care provider in 2-3 days *Return to ER if you should have any new, worsening or concerning symptoms Prescriptions: New lorazepam [Ativan] 1 mg tablet See Label Instructions .ROUTE .COMPLEX Qty: 19 RF: 0 No Action ondansetron [Zofran ODT] 4 mg tablet,disintegrating 4 mg PO Q6H PRN (Reason: nausea) Qty: 20 RF: 0 lorazepam [Ativan] 2 mg tablet 2 mg PO DAILY Qty: 9 RF: 0 buspirone 5 mg tablet 5 mg PO TID RF: 0 paliperidone 9 mg tablet extended release 24hr 1 tab PO DAILY RF: 0
[2017-10-18] MEDS: LORazepam 0.5 MG TABLET 1 MG PO (01:50)
== END 2017-10-18 01:50 | disposition home or self-care (01) ==
PROVIDERS: Emergency Provider Emergency Medicine; Family Provider Family Medicine; PCP Family Medicine
DX: F10.929 Alcohol use, unspecified with intoxication, unspecified (principal); Z00.8 Encounter for other general examination
CPT/HCPCS: 99282; 99283

== ENCOUNTER 2018-02-08 23:25 | Emergency (ER) | payer OTHER, MEDICAID, SELFPAY ==
[2018-02-08 23:35] VITALS: BP 136/96; PULSE 106; RESP 20; TEMP 36.4; O2SAT 99; BMI 36.6
--- NOTE | 2018-02-08 23:51 | DI.RAD.S_ITS ---
PROCEDURE: XR CHEST 1V INDICATIONS: short of breath TECHNIQUE: One view of the chest was acquired. COMPARISON: [facility], CHEST 1 VIEW, 07/09/2017, 18:45. [facility], CHEST 2 VIEW, 06/07/2017, 6:19. FINDINGS: Surgical changes and devices: None. Lungs and pleura: No pleural effusions or pneumothorax. Lungs are difficult to accurately assess due to prominently reduced inspiratory volume. Mediastinum: Mediastinal contours appear normal. Heart size is normal. Bones and chest wall: No suspicious bony lesions. Overlying soft tissues appear unremarkable. IMPRESSION: No definite pneumonia within the prominent reduced inspiratory volume is taken into account. Dictated by: Ramon Crowley M.D. on 02/09/2018 at 8:15 Approved by: Ramon Crowley M.D. on 02/09/2018 at 8:16
[2018-02-09] VITALS: PULSE 93; RESP 18; O2SAT 96
[2018-02-09] MEDS: ALBUTEROL/IPRATROPIUM 3 ML AMPUL INH
--- NOTE | 2018-02-09 00:10 | ED_ITS ---
HPI - SOB/Dyspnea General Chief Complaint: Shortness of Breath/Dyspnea Stated Complaint: DIFFICULTY BREATHING, THINKS PANICE ATTACK Time Seen by Provider: 02/08/18 23:42 Source: patient Mode of arrival: ambulatory Limitations: no limitations History of Present Illness Patient is a 32-year-old male presenting with shortness of breath. He is a known alcoholic states that he has been drinking some fell off the wagon but is really here if he has had chest pain and difficulty breathing all day. Was no fever productive cough. No radiation of pain and just feels a can't take a breath. He also is a known smoker. He was previously seen twice at [facility] this evening. The 1st was for alcohol intoxication a 2nd was chest pain. He also has a history of anxiety. MD Complaint: shortness of breath Related Data Home Medications Medication Instructions Recorded Confirmed buspirone 5 mg PO TID 09/06/17 09/11/17 paliperidone 1 tab PO DAILY 09/06/17 09/11/17 Previous Rx's Medication Instructions Recorded lorazepam [Ativan] 2 mg PO DAILY #9 tab 08/25/17 ondansetron [Zofran ODT] 4 mg PO Q6H PRN #20 tab 08/25/17 lorazepam [Ativan] See Label Instructions .ROUTE 10/18/17 .COMPLEX #19 tab Allergies Allergy/AdvReac Type Severity Reaction Status Date / Time amoxicillin [AMOXICILLIN] Allergy Unknown Verified 02/08/18 23:46 quetiapine [From Seroquel] AdvReac Severe Hypotension Verified 02/08/18 23:46 Review of Systems Review of Systems All systems reviewed & are unremarkable except as noted in HPI and below Constitutional Denies chills, Denies fever(s), Denies lethargy and Denies weakness Cardiovascular Reports as per HPI Respiratory Reports as per HPI Gastrointestinal Gastrointestinal: Denies abdominal pain, Denies change in bowel habits, Denies diarrhea, Denies nausea and Denies vomiting Musculoskeletal Denies back pain, Denies muscle weakness, Denies numbness and Denies tingling Integumentary/Breasts Denies pruritus, Denies erythema, Denies rash and Denies wounds Neurologic Denies numbness, Denies tingling and Denies weakness [facility] Medical History Alcoholism (Acute) Social History Smoking Status: Current every day smoker alcohol intake: current Exam Initial Vital Signs Initial Vital Signs: Vital Signs Temperature 97.6 F 02/08/18 23:35 Pulse Rate 106 H 02/08/18 23:35 Respiratory Rate 20 02/08/18 23:35 Blood Pressure 136/96 H 02/08/18 23:35 Pulse Oximetry 99 02/08/18 23:35 GENERAL: Alert oriented male no acute distress HEENT: Head atraumatic,EOMI, pupils reactive, face symmetric, CARDIOVASCULAR: Regular rate and rhythm without murmurs, rubs or gallops. RESPIRATORY: Breath sounds equal bilaterally, no wheezes rales or rhonchi. ABDOMEN: Soft, nontender. Normoactive bowel sounds all 4 quadrants. No guarding or rebound. EXTREMITIES: Normal range of motion, no clubbing or edema. Neurovascularly intact NEUROLOGICAL: Alert and oriented x4.Normal gait and speech. Cranial nerves II through XII grossly intact. No slurring of speech SKIN: Warm, dry, no laceration, no petechiae, no rashes or lesions. Course Orders Ordered: ED Orders 02/08/18 23:51 XR chest 1V Stat 02/09/18 EKG-12 Lead Routine Discontinued Medications Albuterol (Ventolin Hfa Prepack) 1 box MISC SEEINSTR ONE Stop: 02/09/18 00:25 Last Admin: 02/09/18 00:25 Dose: 1 box Albuterol/Ipratropium (Duoneb) 3 ml INH NOW ONE Stop: 02/08/18 23:52 Last Admin: 02/09/18 00:00 Dose: 3 ml Vital Signs - 8 hr 02/08/18 23:35 02/09/18 00:00 02/09/18 00:40 Temperature 97.6 F Pulse Rate 106 H 93 H 96 H Respiratory Rate 20 18 18 Blood Pressure 136/96 H Blood Pressure [Right Arm] 140/85 Pulse Oximetry 99 96 96 MDM - SOB/Dyspnea ECG Data Attestation: I personally reviewed and interpreted this ECG as follows: Prior ECG tracings: available for review Interpretation: Sinus rhythm rate 86 normal intervals appear interval 138 QTC 412 QRS 92 compared to [place] [facility] EKG earlier in the day remains unchanged. [facility] Narrative Medical decision making narrative: Patient ate 2 sandwiches and an albuterol treatment is now sleeping. Overall feeling better Discharge Plan Departure Patient Disposition: Home Clinical Impression: Atypical chest pain Instructions: DI for Atypical Chest Pain Activity Restrictions/Additional Instructions: *You have been diagnosed with atypical chest pain *What to do: EKG chest x-ray negative *Continue to take medications as directed *Follow up with your primary care provider in 2-3 days *Return to ER if you should have any new, worsening or concerning symptoms Prescriptions: No Action ondansetron [Zofran ODT] 4 mg tablet,disintegrating 4 mg PO Q6H PRN (Reason: nausea) Qty: 20 RF: 0 lorazepam [Ativan] 2 mg tablet 2 mg PO DAILY Qty: 9 RF: 0 buspirone 5 mg tablet 5 mg PO TID RF: 0 paliperidone 9 mg tablet extended release 24hr 1 tab PO DAILY RF: 0 lorazepam [Ativan] 1 mg tablet See Label Instructions .ROUTE .COMPLEX Qty: 19 RF: 0 Referrals: Denton Landry MD [Primary Care Provider] -
[2018-02-09] MEDS: ALBUTEROL HFA PREPACK 1 BOX MISC (00:25)
[2018-02-09 00:40] VITALS: BP 140/85; PULSE 96; RESP 18; O2SAT 96
--- NOTE | 2018-02-09 02:42 | PC.NURSE ---
He has discharge papers that have been ready for an hour,he is resting on gurney,it is pourign rain outside,he will be allowed to rest here for a while.
[2018-02-09 06:26] VITALS: BP 120/71; PULSE 100; RESP 20; TEMP 36.6; O2SAT 98
== END 2018-02-09 06:15 | disposition home or self-care (01) ==
PROVIDERS: Emergency Provider Emergency Medicine; Family Provider Family Medicine; PCP Family Medicine
DX: R07.89 Other chest pain (principal)
CPT/HCPCS: 71045; 93005; 94640; 99282; 99284

== ENCOUNTER 2019-09-03 19:31 | Emergency (ER) | payer OTHER, MEDICAID, SELFPAY ==
[2019-09-03 19:15] VITALS: BP 127/85; PULSE 90; RESP 18; O2SAT 96
--- NOTE | 2019-09-03 20:05 | ED.GENADULT ---
HPI - General Adult General Stated complaint: Altered LOC Time Seen by Provider: 09/03/19 20:00 Source: patient Mode of arrival: EMS Limitations: no limitations History of Present Illness HPI narrative: Patient is a 33-year-old male here for evaluation what he thinks is a reaction to a fentanyl patch. Patient states that he was prescribed fentanyl patches for ?chronic pain ?he cannot give me the name of the individual who prescribed the patches for him although he states that it was the 1st time he has ever use this medication. He states it was 12.5 mcg patch. He states that he placed the patch on his left forearm very shortly afterwards felt like he was having a panic attack, 7 some chest pain, was getting what he states was ?altered? he was with someone who had some Narcan which was also given to him at the time that he was given the prescription for the fentanyl patches. He received 1 dose of intranasal Narcan and he removed the fentanyl patch. My evaluation was approximately 2 hours after he removed the patch. He reports no symptoms. Related Data Home Medications Medication Instructions Recorded Confirmed buspirone 5 mg PO TID 09/06/17 09/11/17 paliperidone 1 tab PO DAILY 09/06/17 09/11/17 Previous Rx's Medication Instructions Recorded lorazepam [Ativan] 2 mg PO DAILY #9 tab 08/25/17 ondansetron [Zofran ODT] 4 mg PO Q6H PRN #20 tab 08/25/17 lorazepam [Ativan] See Rx Instructions .ROUTE 10/18/17 .COMPLEX #19 tab Allergies Allergy/AdvReac Type Severity Reaction Status Date / Time amoxicillin [AMOXICILLIN] Allergy Unknown Verified 02/08/18 23:46 quetiapine [From Seroquel] AdvReac Severe Hypotension Verified 02/08/18 23:46 Review of Systems Constitutional Constitutional: Denies headache(s) ENT Ears, Nose, Mouth, and Throat: Denies headache(s) Cardiovascular Cardiovascular: Denies chest pain and Denies dyspnea Respiratory Respiratory: Denies dyspnea Integumentary/Breasts Skin/Breast: Denies lesions and Denies rash Neurologic Neurologic: Reports behavioral changes and Denies headache(s) Psychiatric Psychiatric: Reports anxiety and Reports behavioral changes Allergic/Immunologic Allergic/Immunologic: Denies urticaria Patient History Medical History Alcoholism (Acute) Social History Smoking Status: Current every day smoker alcohol intake: current Smoking Status: Current every day smoker alcohol intake frequency: 3 or more drinks per day Substance Use Type: former substance user Exam Initial Vital Signs Initial Vital Signs: Vital Signs Pulse Rate 90 09/03/19 19:15 Respiratory Rate 18 09/03/19 19:15 Blood Pressure 127/85 09/03/19 19:15 Pulse Oximetry 96 09/03/19 19:15 Const General: cooperative, comfortable and well developed Resp Effort & Inspection: normal respiratory effort Auscultation: clear to auscultation bilaterally Cardio Rate: regular rate Rhythm: regular rhythm Skin Lesions: no lesions Rashes: no rashes Neuro General: alert, awake and oriented x3 Cognition: normal cognition Speech: speech normal Gait: normal gait Extrem General: normal to inspection and capillary refill normal Psych Appearance: grossly normal and well kempt Scores GCS Deep coma scale eye opening: Spontaneous Deep coma scale verbal response: Orientated [place] coma scale motor response: [place] Deep coma scale total score: 15 Course Vital Signs Vital signs: Vital Signs - 8 hr 09/03/19 19:15 Pulse Rate 90 Respiratory Rate 18 Blood Pressure [Left Arm] 127/85 Pulse Oximetry 96 Medical Decision Making [facility] Narrative Medical decision making narrative: The circumstances of him using the fentanyl patch seem somewhat awkward especially given the setting that he states that he was also offered Narcan at the time that he was given the prescription for the patch. Despite this patient has been 2 hours since removal the patch. He has no symptoms. The area where he put the past from his left forearm is unremarkable in appearance. He is alert and oriented x3. Informed the patient that he should avoid using the fentanyl patch in the future and to contact his prescribing provider to let him/her know that this potentially is too strong of a medication for him. Feel we can hold on further workup for now. He was given return precautions. He expressed understanding and agreement. Discharge Plan Departure Patient Disposition: Home Clinical Impression: Medication reaction Qualifiers: Encounter type: initial encounter Qualified Code(s): T50.905A - Adverse effect of unspecified drugs, medicaments and biological substances, initial encounter Discharge Date/Time: 09/03/19 20:12 Activity Restrictions/Additional Instructions: Recommend that you no longer use the fentanyl patches. Contact the prescribing provider to let him/her know that you had this reaction. Return to the emergency department for any new or worsening symptoms Prescriptions: No Action ondansetron [Zofran ODT] 4 mg tablet,disintegrating 4 mg PO Q6H PRN (Reason: nausea) Qty: 20 RF: 0 lorazepam [Ativan] 2 mg tablet 2 mg PO DAILY Qty: 9 RF: 0 buspirone 5 mg tablet 5 mg PO TID RF: 0 paliperidone 9 mg tablet extended release 24hr 1 tab PO DAILY RF: 0 lorazepam [Ativan] 1 mg tablet See Rx Instructions .ROUTE .COMPLEX Qty: 19 RF: 0 Referrals: Denton Landry MD [Primary Care Provider] -
--- NOTE | 2019-09-03 20:11 | PC.NURSE ---
Cleared for discharge. Pt verbalized understanding of d/c instructions. No acute distress.
== END 2019-09-03 20:12 | disposition home or self-care (01) ==
LOC: ED 20:20
PROVIDERS: Emergency Provider Emergency Medicine; Family Provider Family Medicine; PCP Family Medicine
DX: F41.8 Other specified anxiety disorders (principal); T40.4X5A Adverse effect of other synthetic narcotics, initial encounter
CPT/HCPCS: 99281

== ENCOUNTER 2019-09-22 14:44 | Emergency (ER) | payer OTHER, MEDICAID, SELFPAY ==
[2019-09-22 14:56] VITALS: BP 139/72; PULSE 74; RESP 22; TEMP 36.4; O2SAT 96
--- NOTE | 2019-09-22 15:04 | DI.RAD.S_ITS ---
PROCEDURE: XR CHEST 1V INDICATIONS: chest pain TECHNIQUE: One view of the chest was acquired. COMPARISON: [facility], CHEST 1 VIEW, 07/09/2017, 18:45. [facility], , CHEST 2 VIEW, 06/07/2017, 6:19. [facility], , XR CHEST 1V, 02/08/2018, 23:55. FINDINGS: Surgical changes and devices: None. Lungs and pleura: Lungs are clear. No pleural effusions or pneumothorax. Mediastinum: Mediastinal contours appear normal. Heart size is normal. Bones and chest wall: No suspicious bony lesions. Overlying soft tissues appear unremarkable. IMPRESSION: Portable chest within normal limits. Dictated by: Inocente Emery M.D. on 09/22/2019 at 15:10 Approved by: Inocente Emery M.D. on 09/22/2019 at 15:11
[2019-09-22 15:47] LABS: Add Manual Diff / Slide Review NO; Basophils Absolute Auto 0 /uL (0-100); Basophils Percent Auto 0.6 % (0-2); Eosinophils Absolute Auto 0 /uL (0-450); Eosinophils Percent Auto 0.6 % (2-4); Hematocrit 40.6 % (41-53); Hemoglobin 14.1 g/dL (13.5-17.5); Lymphocytes Absolute Auto 1300 /uL (1100-4500); Lymphocytes Percent Auto 18.7 % (25-40); Mean Corpuscular HGB Conc 34.9 % (30-36); Mean Corpuscular Hemoglobin 30.4 PG (26-34); Mean Corpuscular Volume 87.2 fL (80-100); Monocytes Absolute Auto 600 /uL (0-900); Monocytes Percent Auto 8.4 % (3-14); Neutrophils Absolute Auto 5100 /uL (1500-7000); Neutrophils Percent Auto 71.7 % (50-75); Platelet Count 140 X10^3/uL (150-400); Red Blood Cell Count 4.66 X10^6/uL (4.5-5.9); Red Cell Distribution Width 13.9 % (11.6-14.8); White Blood Cell Count 7.1 X10^3/uL (4.5-11.0)
[2019-09-22 15:51] LABS: Bacteria Urine None Seen; RBC Urine None Seen (0-5/HPF); WBC Urine None Seen (0-5/HPF)
[2019-09-22 15:52] LABS: Appearance Urine UA CLEAR; Bilirubin Urine UA NEGATIVE (NEGATIVE); Color Urine UA YELLOW; Glucose Urine UA NEGATIVE (Negative); Ketones Urine UA NEGATIVE (NEGATIVE); Leukocyte Esterase Urine UA NEGATIVE (NEGATIVE); Nitrite Urine UA NEGATIVE (Negative); Occult Blood Urine UA NEGATIVE (Negative); Protein Urine UA NEGATIVE (Negative); Specific Gravity Urine UA <=1.005 (1.000-1.035); Urobilinogen Urine UA 0.2 E.U./dL (0.2)
--- NOTE | 2019-09-22 15:55 | ED_ITS ---
HPI - Alcohol General Chief Complaint: Toxicology Problem Stated Complaint: no sleep 6 days,ETOH detox,chest pains Time Seen by Provider: 09/22/19 15:36 Source: patient Mode of arrival: Wheelchair History of Present Illness HPI narrative: CC: I'm Going through withdrawal and having slept in 6 days HPI: The patient is a 33-year-old male who is well-known to the emergency department with multiple visits in the past. The patient states that he has recently been in acute treatment. He states that he had been free of alcohol and then went on binge drinking for 2 weeks at which time he was drinking half a gal of vodka per day. He states that he was discharged from the treatment center and still has been unable to sleep. He is acutely anxious and agitated. He admits to a schizoaffective disorder. He feels depressed but does not want to hurt himself or hurt others at this time. He states that he has been hallucinating seeing gang stirs that have followed him from [facility]. They were out in the parking lot waiting for me now. He has been hallucinating hearing voices that they are talking to him through the radial and the vents. He states that his last drink of alcohol was on September 17. He admits to alcohol seizures in the past but states that he had a seizure last night. He admits to a history of pancreatitis. He denies hypertension diabetes mellitus heart disease with myocardial infarction or asthma. He smokes cigarettes drinks alcohol chronically does not use any drugs. Related Data Home Medications Medication Instructions Recorded Confirmed buspirone 5 mg PO TID 09/06/17 09/11/17 paliperidone 1 tab PO DAILY 09/06/17 09/11/17 Previous Rx's Medication Instructions Recorded lorazepam [Ativan] 2 mg PO DAILY #9 tab 08/25/17 ondansetron [Zofran ODT] 4 mg PO Q6H PRN #20 tab 08/25/17 lorazepam [Ativan] See Rx Instructions .ROUTE 10/18/17 .COMPLEX #19 tab ibuprofen 600 mg PO QID PRN #20 tab 09/22/19 omeprazole magnesium 40 mg PO DAILY #20 tab 09/22/19 Allergies Allergy/AdvReac Type Severity Reaction Status Date / Time amoxicillin [AMOXICILLIN] Allergy Unknown Verified 02/08/18 23:46 quetiapine [From Seroquel] AdvReac Severe Hypotension Verified 02/08/18 23:46 Review of Systems Review of Systems Narrative: REVIEW OF SYSTEMS: CONSTITUTIONAL: He denies any fever chills but has had sweats. NEUROLOGICAL: He has complained of a headache but has had no numbness tingling paresthesias anesthesia is paresis or paralysis. EENT: He denies any sore throat or trouble swallowing. CARDIO-PULMONARY: He has had no shortness of breath or cough but complains of chest pain in the center of his chest associated with palpitations and dizziness. GASTROINTESTINAL: He denies any abdominal pain nausea or vomiting or diarrhea. He has been anorectic and unable to eat. GENITAL URINARY: He denies any urinary symptoms. DERMATOLOGICAL: He denies any skin rash or bruising Patient History Medical History Alcoholism (Acute) Social History Smoking Status: Current every day smoker alcohol intake: current Smoking Status: Current every day smoker alcohol intake frequency: 3 or more drinks per day Substance Use Type: former substance user Exam Narrative Exam Narrative: PHYSICAL EXAM: CONSTITUTIONAL: Awake, Alert, Oriented, Coherent, Cooperative does not appear to be in any acute distress ill or toxic. HEAD: AT/NC EENT: PERRL, FROM of eyes, no discharge, no nystagmus NOSE:No epistaxis or nasal drainage MOUTH:Oral mucosa is moist and pink, . NECK: Supple, no obvious JVD, Trachea is midline without stridor, no palpable LN. SPINE: Palpationof the cervical, Thoracic, Lumbar or Sacral spine reveals no gross deformity or tenderness. No CVA tenderness. THORAX: No deformity, retractions. The patient is diffusely tender to palpation over the central sternum and is if he sternum. He has mild tenderness to palpation in the epigastrium. LUNGS: Clear, symmetrical breath sounds without respiratory distress. HEART: Normal heart tones, regular rhythm and rate without murmur. ABDOMEN: Soft, mild tenderness in the epigastrium without guarding rebound or rigidity. EXTREMITIES: No edema, deformity, tenderness or cyanosis. SKIN: No rash, bruising, petechiae or purpura. NEURO: Awake, alert, oriented, conversive, cranial nerves II-XII are symmetrical , moves all 4 extremities and is ambulatory. Initial Vital Signs Initial Vital Signs: Vital Signs Temperature 97.6 F 09/22/19 14:56 Pulse Rate 74 09/22/19 14:56 Respiratory Rate 22 09/22/19 14:56 Blood Pressure 139/72 09/22/19 14:56 Pulse Oximetry 96 09/22/19 14:56 Course Course Course Narrative: 1606: Chest x-ray reveals no definite pneumonia. There is no other acute cardiopulmonary pathology noted. 1653: The patient's urine drug screen and EtOH are negative at this time. The patient has been medically cleared. 1740: Patient will be discharged home to follow-up with his primary care physician. For alcohol gastritis he has been prescribed omeprazole 40 mg per day for the next 10 days. For his costochondritis he has been prescribed ibupro fen 600 mg Q 6 hours. His troponin was normal at 0.012 and his chest x-ray revealed no acute cardiopulmonary pathology. 1755: The patient was sleeping when I entered the room. He is in no acute dis tress. He was informed that he will be discharged home and that his tests were all basically within normal limits. Orders Ordered: Discontinued Medications Magnesium Sulfate 2 gm/ Folic Acid 1 mg/ Thiamine HCl 100 mg / Multivitamins 10 ml/ Sodium Chloride 1,015.2 mls @ 500 mls/hr IV NOW ONE Stop: 09/22/19 17:59 Last Infusion: 09/22/19 18:39 Dose: 0 mls/hr Documented by: Admin: 09/22/19 16:30 Dose: 500 mls/hr Documented by: KULDIP Ketorolac Tromethamine (Toradol) 30 mg IV NOW ONE Stop: 09/22/19 15:53 Last Admin: 09/22/19 16:13 Dose: 30 mg Documented by: KULDIP Lorazepam (Ativan) 2 mg PO NOW ONE Stop: 09/22/19 16:57 Last Admin: 09/22/19 17:12 Dose: 2 mg Documented by: KULDIP Phenobarbital (Phenobarbital) 260 mg IV NOW ONE Stop: 09/22/19 15:53 Last Admin: 09/22/19 16:10 Dose: 260 mg Documented by: KULDIP Vital Signs Vital signs: Vital Signs - 8 hr 09/22/19 14:56 09/22/19 16:00 09/22/19 17:00 Temperature 97.6 F Pulse Rate 74 74 77 Respiratory Rate 22 16 18 Blood Pressure 139/72 Blood Pressure [Left Arm] 126/75 128/73 Pulse Oximetry 96 98 99 MDM - Alcohol Medical Records Attestation: I reviewed the patient's medical records. Lab Data Attestation: I reviewed the patient's lab results. Result diagrams: 09/22/19 15:15 09/22/19 15:15 Labs: Lab Results 09/22/19 09/22/19 09/22/19 Range/Units 15:15 15:15 15:15 WBC 7.1 (4.5-11.0) X10^3/uL RBC 4.66 (4.5-5.9) X10^6/uL Hgb 14.1 (13.5-17.5) g/dL Hct 40.6 L (41-53) % MCV 87.2 (80-100) fL MCH 30.4 (26-34) PG MCHC 34.9 (30-36) % RDW 13.9 (11.6-14.8) % Plt Count 140 L (150-400) X10^3/uL Neut % (Auto) 71.7 (50-75) % Lymph % (Auto) 18.7 L (25-40) % [place] % (Auto) 8.4 (3-14) % Eos % (Auto) 0.6 L (2-4) % Baso % (Auto) 0.6 (0-2) % Neut # (Auto) 5100 (8540-8343) /uL Lymph # (Auto) 1300 (6634-0981) /uL [place] # (Auto) 600 (0-900) /uL Eos # (Auto) 0 (0-450) /uL Baso # (Auto) 0 (0-100) /uL PT 11.7 (10.1-12.7) SECONDS INR 1.0 (0.9-1.3) APTT 34 (26.4-36.2) SECONDS Sodium 134 L (137-145) mmol/L Potassium 4.0 (3.4-5.1) mmol/L Chloride 103 (98-107) mmol/L Carbon Dioxide 23 (22-32) mmol/L BUN 8 L (9-20) mg/dL Creatinine 0.71 (0.66-1.25) mg/dL Estimated GFR > 60.0 (>60) mL/min BUN/Creatinine Ratio 11.3 (6-22) Glucose 115 H (70-100) mg/dL Calcium 9.4 (8.4-10.2) mg/dL Total Bilirubin 0.6 (0.2-1.3) mg/dL AST 59 (17-59) IU/L ALT 64 H (<50) IU/L Alkaline Phosphatase 110 (38-126) U/L Total Creatine Kinase 101 (55-170) U/L CK-MB (CK-2) 0.82 (<2.37) ng/mL CK-MB (CK-2) Rel Index 0.8 L (1.5-5.0) % Troponin I < 0.012 (0.01-0.034) ng/mL Total Protein 7.0 (6.3-8.2) g/dL Albumin 4.2 (3.5-5.0) g/dL Globulin 2.8 (1.7-4.1) g/dL Albumin/Globulin Ratio 1.5 (1.0-2.8) Lipase 122 (23-300) U/L Urine Color Urine Appearance Urine pH (4.5-8.0) Ur Specific [place] (1.000-1.035) Urine Protein (Negative) Urine Glucose (UA) (Negative) g/dL Urine Ketones (NEGATIVE) Urine Occult Blood (Negative) Urine Nitrate (Negative) Urine Bilirubin (NEGATIVE) Urine Urobilinogen (0.2) E.U./dL Ur Leukocyte Esterase (NEGATIVE) Urine RBC (0-5/HPF) Urine WBC (0-5/HPF) Urine Bacteria (None) Ur Culture Indicated? U Opiates 300ng/mL cut (Negative) Ur Oxycodone Screen (Negative) Urine Methadone Screen (Negative) Ur Barbiturates Screen (Negative) U Tricyclic Antidepress (Negative) Ur Phencyclidine Scrn (Negative) Ur Amphetamines Screen (Negative) U Methamphetamines Scrn (Negative) Ur MDMA Scrn (Ecstasy) (Negative) U Benzodiazepines Scrn (Negative) Urine Cocaine Screen (Negative) U Marijuana (THC) Screen (Negative) Ethyl Alcohol ( - 10) mg/dL 06/09/22/19 09/22/19 Range/Units 15:15 15:40 15:40 WBC (4.5-11.0) X10^3/uL RBC (4.5-5.9) X10^6/uL Hgb (13.5-17.5) g/dL Hct (41-53) % MCV (80-100) fL MCH (26-34) PG MCHC (30-36) % RDW (11.6-14.8) % Plt Count (150-400) X10^3/uL Neut % (Auto) (50-75) % Lymph % (Auto) (25-40) % [place] % (Auto) (3-14) % Eos % (Auto) (2-4) % Baso % (Auto) (0-2) % Neut # (Auto) (6380-5164) /uL Lymph # (Auto) (0959-7255) /uL [place] # (Auto) (0-900) /uL Eos # (Auto) (0-450) /uL Baso # (Auto) (0-100) /uL PT (10.1-12.7) SECONDS INR (0.9-1.3) APTT (26.4-36.2) SECONDS Sodium (137-145) mmol/L Potassium (3.4-5.1) mmol/L Chloride (98-107) mmol/L Carbon Dioxide (22-32) mmol/L BUN (9-20) mg/dL Creatinine (0.66-1.25) mg/dL Estimated GFR (>60) mL/min BUN/Creatinine Ratio (6-22) Glucose (70-100) mg/dL Calcium (8.4-10.2) mg/dL Total Bilirubin (0.2-1.3) mg/dL AST (17-59) IU/L ALT (<50) IU/L Alkaline Phosphatase (38-126) U/L Total Creatine Kinase (55-170) U/L CK-MB (CK-2) (<2.37) ng/mL CK-MB (CK-2) Rel Index (1.5-5.0) % Troponin I (0.01-0.034) ng/mL Total Protein (6.3-8.2) g/dL Albumin (3.5-5.0) g/dL Globulin (1.7-4.1) g/dL Albumin/Globulin Ratio (1.0-2.8) Lipase (23-300) U/L Urine Color Yellow Urine Appearance Clear Urine pH 7.0 (4.5-8.0) Ur Specific [place] <=1.005 (1.000-1.035) Urine Protein Negative (Negative) Urine Glucose (UA) Negative (Negative) g/dL Urine Ketones Negative (NEGATIVE) Urine Occult Blood Negative (Negative) Urine Nitrate Negative (Negative) Urine Bilirubin Negative (NEGATIVE) Urine Urobilinogen 0.2 (0.2) E.U./dL Ur Leukocyte Esterase Negative (NEGATIVE) Urine RBC None seen (0-5/HPF) Urine WBC None seen (0-5/HPF) Urine Bacteria None seen (None) Ur Culture Indicated? Cult not indicated U Opiates 300ng/mL cut Negative (Negative) Ur Oxycodone Screen Negative (Negative) Urine Methadone Screen Negative (Negative) Ur Barbiturates Screen Negative (Negative) U Tricyclic Antidepress Negative (Negative) Ur Phencyclidine Scrn Negative (Negative) Ur Amphetamines Screen Negative (Negative) U Methamphetamines Scrn Negative (Negative) Ur MDMA Scrn (Ecstasy) Negative (Negative) U Benzodiazepines Scrn Negative (Negative) Urine Cocaine Screen Negative (Negative) U Marijuana (THC) Screen Negative (Negative) Ethyl Alcohol < 10 ( - 10) mg/dL ECG Data Attestation: I personally reviewed and interpreted this ECG as follows: Interpretation: The patient's EKG obtained on September 21 at 3:01 p.m. reveals a normal sinus rhythm with a ventricular rate of 76. Intervals are normal QTC is 434 milliseconds axis is normal. The patient has nonspecific ST segment changes with slight elevation in lead III and AVF. These appear to be elevated and secondary to early repolarization. There are no other acute diagnostic ST segment changes. Discharge Plan Departure Patient Disposition: Home Clinical Impression: Alcohol abuse, Auditory hallucination, Hallucination, visual, Costochondritis Insomnia Qualifiers: Insomnia type: unspecified Qualified Code(s): G47.00 - Insomnia, unspecified Discharge Date/Time: 09/22/19 18:40 Instructions: DI for Delirium Tremens, DI for Alcohol Abuse, DI for Costochondritis, DI for Alcoholic Gastritis Activity Restrictions/Additional Instructions: 1. Follow-up with their primary care physician to write her prescriptions for sleep medications and insomnia. 2. For the pain and discomfort in your chest take ibuprofen 600 mg every 6 hours. Your chest pain is not coming from your heart. You are not having a heart attack at this time. 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 3. For your indigestion, and gastritis take omeprazole 40 mg per day as prescribed. Prescriptions: New ibuprofen 600 mg tablet 600 mg PO QID PRN (Reason: pain) Qty: 20 RF: 0 omeprazole magnesium 20 mg tablet,delayed release (DR/EC) 40 mg PO DAILY Qty: 20 RF: 1 No Action ondansetron [Zofran ODT] 4 mg tablet,disintegrating 4 mg PO Q6H PRN (Reason: nausea) Qty: 20 RF: 0 lorazepam [Ativan] 2 mg tablet 2 mg PO DAILY Qty: 9 RF: 0 buspirone 5 mg tablet 5 mg PO TID RF: 0 paliperidone 9 mg tablet extended release 24hr 1 tab PO DAILY RF: 0 lorazepam [Ativan] 1 mg tablet See Rx Instructions .ROUTE .COMPLEX Qty: 19 RF: 0 Referrals: Denton Landry MD [Primary Care Provider] -
[2019-09-22 15:58] LABS: Culture Indicated Urine Cult Not Indicated
[2019-09-22 16:00] VITALS: BP 126/75; PULSE 74; RESP 16; O2SAT 98
[2019-09-22 16:02] LABS: UR Morphine/Opiate cutoff 300 Negative (Negative); Ur Creatinine Normal (Normal); Ur Specific Gravity Normal (Normal); Urine Amphetamines Negative (Negative); Urine Barbiturates Negative (Negative); Urine Benzodiazepines Negative (Negative); Urine Cocaine Negative (Negative); Urine MDMA Negative (Negative); Urine Methadone Negative (Negative); Urine Methamphetamines Negative (Negative); Urine Oxycodone Negative (Negative); Urine Phencyclidine Negative (Negative); Urine Tetrahydrocannabinol Negative (Negative); Urine Tricyclic Antidepressant Negative (Negative); Urine pH Normal (Normal)
[2019-09-22 16:02] LABS: Alanine Aminotransferase 64 IU/L (<50); Albumin 4.2 g/dL (3.5-5.0); Albumin Globulin Ratio 1.5 (1.0-2.8); Alkaline Phosphatase 110 U/L (38-126); Aspartate Aminotransferase 59 IU/L (17-59); BUN Creatinine Ratio 11.3 (6-22); Bilirubin Total 0.6 mg/dL (0.2-1.3); Blood Urea Nitrogen 8 mg/dL (9-20); Calcium 9.4 mg/dL (8.4-10.2); Carbon Dioxide 23 mmol/L (22-32); Chloride 103 mmol/L (98-107); Creatine Kinase 101 U/L (55-170); Estimated Glomerular Filt Rate > 60.0 mL/min (>60); Globulin 2.8 g/dL (1.7-4.1); Glucose 115 mg/dL (70-100); HEMOLYSIS < 15 (0-50); Lipase 122 U/L (23-300); Sodium 134 mmol/L (137-145)
[2019-09-22 16:03] LABS: Ethanol (ETOH) < 10 mg/dL; Prothrombin Time 11.7 SECONDS (10.1-12.7)
[2019-09-22 16:06] LABS: PTT Partial Thromboplastin Tim 34 SECONDS (26.4-36.2)
[2019-09-22] MEDS: PHENobarbital 65 MG/ML VIAL 260 MG IV (16:10)
[2019-09-22 16:13] LABS: Troponin I < 0.012 ng/mL (0.01-0.034)
[2019-09-22] MEDS: KETOROLAC 60 MG/2 ML VIAL 30 MG IV (16:13)
[2019-09-22 16:17] LABS: CKMB % Relative Index 0.8 % (1.5-5.0); Creatine Kinase MB 0.82 ng/mL (<2.37)
[2019-09-22] MEDS: MAGNESIUM SULFATE 2 GM, FOLIC ACID 1 MG, THIAMINE 100 MG, MULTIVITAMIN 10 ML in SODIUM ... IV (16:30)
[2019-09-22 17:00] VITALS: BP 128/73; PULSE 77; RESP 18; O2SAT 99
[2019-09-22] MEDS: LORazepam 0.5 MG TABLET 2 MG PO (17:12)
[2019-09-22 18:21] VITALS: BP 134/80; PULSE 85; RESP 19; O2SAT 99
== END 2019-09-22 18:40 | disposition home or self-care (01) ==
PROVIDERS: Emergency Provider Emergency Medicine; Family Provider Family Medicine; PCP Family Medicine
DX: F10.10 Alcohol abuse, uncomplicated (principal); R44.0 Auditory hallucinations; R44.1 Visual hallucinations; M94.0 Chondrocostal junction syndrome [Tietze]; G47.00 Insomnia, unspecified
CPT/HCPCS: 36415; 71045; 80053; 80305; 80320; 81001; 82550; 82553; 83690; 84484; 85025; 85610; 85730; 93005; 96361; 96374; 96375; 99284; J1885; J2560; J3475